=== PATIENT | male | born 1985 | race African-American/Black ===

== ENCOUNTER 2018-01-13 12:40 | Emergency (ER) | payer SELFPAY ==
[~2018-01-13] VITALS: Ht 175.3 cm; Wt 71.0 kg
[2018-01-13] MEDS ORDERED: ACETAMINOPHEN 500MG TABLET PO ONE (13:00)
[2018-01-13] MEDS ORDERED: IBUPROFEN 600MG TABLET PO ONE (13:00)
[2018-01-13] MEDS ORDERED: LIDOCAINE HCL 1% 20ML VIAL (Pyxis) INJ MC ONE (15:00)
[2018-01-13] MEDS ORDERED: LIDOCAINE HCL/PF 1% 10 MG/ML 5ML VIAL IJ ONE (15:15)
[2018-01-13 16:55] VITALS: BP 129/77
== END 2018-01-13 17:10 | disposition home or self-care (01) ==
LOC: ER 13:29
DX: S62.611A Displaced fracture of proximal phalanx of left index finger, initial encounter for closed fracture (principal); X58.XXXA Exposure to other specified factors, initial encounter; Y93.67 Activity, basketball; Y92.89 Other specified places as the place of occurrence of the external cause; Y99.8 Other external cause status
CPT/HCPCS: 26742; 73130; 73140; 99284; J3490; Z7610; 26725